=== PATIENT | male | born 1965 | race Caucasian/White ===

== ENCOUNTER 2017-01-08 00:09 | Inpatient (IN) | payer OTHER ==
[~2017-01-08] VITALS: Ht 180.3 cm; Wt 152.5 kg
[~2017-01-08 00:09] MED LIST: AMBIEN10 MG PO; AMITRIPTYLINE H50 MG PO; BUMETANIDE2 MG PO; BUSPAR15 MG PO; BUSPAR30 MG PO; BUSPAR7.5 MG PO; BUTRANS1 EAC2 TD; CALCIUM-MAG-ZI1 EACH PO; CALCIUM-MAGNES1 EAC8 PO; CARISOPRODOL350 MG PO; COMBIVENT RESPIM4 GM IH; DESYREL 150 MG150 MG PO; DIAZEPAM10 MG PO; ELAVIL50 MG PO; FEOSOL BIFERA 228 MG PO; FERROUS SULFAT325 MG PO; GABAPENTIN300 MG PO; HEPARIN LOCK 1005 ML IV; INDOCIN SR75 MG PO; IRON325 M1 PO; K-DUR20 MEQ PO; LASIX40 MG PO; LEVOFLOXACIN500 MG PO; LYRICA150 MG PO; MORPHINE SULFAT30 M2 PO; MULTIPLE VITAM1 EACH PO; PERCOCET 10/1 TABLET PO; SERTRALINE HCL100 MG PO; SYMBICORT60 INHALAT IH; TRAZODONE HCL150 MG PO; ULTRAM50 MG PO; VALIUM10 MG PO; VENLAFAXINE HC150 M1 PO; ZOLPIDEM TARTRA10 MG PO
[2017-01-08 01:14] LABS: VENOUS PCO2 65 mm Hg (41-51)
[2017-01-08 01:15] LABS: CARBON DIOXIDE (BICARBONATE) > 40.0 MEQ/L (20-31)
[2017-01-08 01:16] LABS: HEMATOCRIT 38.4 % (38.0-50.0); MCH 29.1 PG (29.0-34.0); MEAN PLAT.VOLUME 9.8 uM^3 (9.0-12.4); RBC DIS.WIDTH-CV 13.9 % (11.8-14.6); RBC DIS.WIDTH-SD 46.8 % (39-53); RED BLOOD COUNT 4.22 M/uL (4.00-5.50); WHITE BLOOD COUNT 8.1 K/uL (4.1-10.2)
[2017-01-08 01:26] LABS: CHLORIDE 95 mEq/L (99-109); POTASSIUM 3.4 mEq/L (3.7-5.4); SODIUM 138 mEq/L (136-147)
[2017-01-08 01:27] LABS: GLUCOSE 113 mg/dL (70-99)
[2017-01-08 01:29] LABS: ANION GAP 12 MEQ/L (2-14)
[2017-01-08 01:30] LABS: PLATELET COUNT 327 K/uL (156-360)
[2017-01-08 01:31] LABS: GFR ESTIMATE (CALCULATED) > 59 mL/min/; SERUM ETHYL ALCOHOL < 10 mg/dL
[2017-01-08 01:33] LABS: UREA NITROGEN (BUN) 16 mg/dL (9-23)
[2017-01-08 01:34] LABS: SALICYLATE < 5.0 MG/DL (15-30)
[2017-01-08 01:48] LABS: ADD MIUA? NO; BILIRUBIN NEGATIVE; BLOOD NEGATIVE; COLOR YELLOW ((YELLOW)); GLUCOSE (STRIP) NEGATIVE; KETONES NEGATIVE; LEUKOCYTES NEGATIVE; NITRITE NEGATIVE; PROTEIN (STRIP) NEGATIVE; SPECIFIC GRAVITY 1.011 (1.000-1.030); UCUL ADDED? NO; UROBILINOGEN 0.2 MG/DL (0.2-1.0)
[2017-01-08 01:57] LABS: ADD MEDTOX COMMENT Y; AMPHETAMINE NEGATIVE (500 ng/mL); BARBITURATES NEGATIVE (200 ng/mL); BENZODIAZEPINES PRESUMPTIVE POSITIVE (150 ng/mL); COCAINE NEGATIVE (150 ng/mL); INTERNAL CONTROLS VALID? YES; METHADONE NEGATIVE (200 ng/mL); METHAMPHETAMINE NEGATIVE (500 ng/mL); OPIATES (MORPHINE) PRESUMPTIVE POSITIVE (100 ng/mL); OXYCODONE PRESUMPTIVE POSITIVE (100 ng/mL); PHENCYCLIDINE NEGATIVE (25 ng/mL); PROPOXYPHENE NEGATIVE (300 ng/mL); THC CANNABINOIDS NEGATIVE (50 ng/mL); TRICYCLIC ANTIDEPRESSANTS PRESUMPTIVE POSITIVE (300 ng/mL)
[2017-01-08 03:08] LABS: BENZODIAZEPINES, URINE SCREEN POSITIVE (200 ng/mL)
[2017-01-08 03:17] LABS: BASE EXCESS 8.5 mEq/L (-3 to +3); BICARBONATE 35.8 mEq/L (22-26); CARBOXY HGB 3.9 % (0-5); METHEMOGLOBIN 0.9 % (0-1.5); PO2 62 mm Hg (80-100); pH 7.37 (7.35-7.45)
[2017-01-08 03:18] LABS: DEVICE NC; O2 FLOW 3 L/MIN; PCO2 62 mm Hg (35-45); SITE LR
[2017-01-08 05:12] LABS: TOTAL BILIRUBIN 0.2 mg/dL (0.0-1.0)
[2017-01-08 05:13] LABS: ALKALINE PHOSPHATASE 125 IU/L (3-129)
[2017-01-08 05:15] LABS: DIRECT BILIRUBIN 0.1 mg/dL (0.0-0.3)
[2017-01-08 05:16] LABS: TROP-I INTERPRETATION NEGATIVE; TROPONIN-I < 0.01 ng/mL (0.0-0.30)
[2017-01-08 05:46] VITALS: BP 98/53
[2017-01-08 06:05] LABS: POINT-OF-CARE METER ID UU14174216
[2017-01-08 08:16] VITALS: BP 117/56
[2017-01-08 11:03] VITALS: BP 131/63
[2017-01-08] MEDS ORDERED: QUETIAPINE FUMA50 MG PO (15:41)
[2017-01-08] MEDS ORDERED: QUETIAPINE FUM300 MG PO (15:42)
[2017-01-08] MEDS ORDERED: TIZANIDINE HCL4 MG PO (15:42)
[2017-01-08] MEDS ORDERED: BUSPAR15 MG PO (15:43)
[2017-01-08 15:48] VITALS: BP 118/54
== END 2017-01-08 19:38 | disposition home or self-care (01) | DRG 917 ==
LOC: EME → EDBD 00:09 → EME 00:09 → EDOF 04:02 → ENRESERV 04:03 → CANRESERV 04:03 → ENRESERV 04:11 → 4EAST 05:34
PROVIDERS: Emergency Medicine; Hospitalist
DX: T40.2X1A Poisoning by other opioids, accidental (unintentional), initial encounter (principal); T42.4X1A Poisoning by benzodiazepines, accidental (unintentional), initial encounter; F17.210 Nicotine dependence, cigarettes, uncomplicated; E66.01 Morbid (severe) obesity due to excess calories; R09.02 Hypoxemia; G89.29 Other chronic pain; J18.9 Pneumonia, unspecified organism; M54.9 Dorsalgia, unspecified; J44.0 Chronic obstructive pulmonary disease with (acute) lower respiratory infection; I42.9 Cardiomyopathy, unspecified; G62.9 Polyneuropathy, unspecified; G93.41 Metabolic encephalopathy; I50.9 Heart failure, unspecified; Z82.49 Family history of ischemic heart disease and other diseases of the circulatory system; Z88.0 Allergy status to penicillin; I25.2 Old myocardial infarction; Y92.9 Unspecified place or not applicable
CPT/HCPCS: 36600; 70450; 71010; 80048; 80076; 81003; 82140; 82803; 82948; 83605; 84484; 84999; 85027; 87040; 93005; 93970; 94799; 99281; 99285; G0480; J0456; J0696; J1650; J2310; J3480; J7040; J7050

== ENCOUNTER 2017-06-17 02:01 | Inpatient (IN) | payer OTHER ==
[~2017-06-17] VITALS: Ht 180.3 cm; Wt 160.0 kg
[~2017-06-17 02:01] MED LIST changes: +QUETIAPINE FUM300 MG PO; +QUETIAPINE FUMA50 MG PO; +TIZANIDINE HCL4 MG PO
[2017-06-17 03:22] LABS: HEMATOCRIT 37.2 % (38.0-50.0); HEMOGLOBIN 12.2 G/DL (12.5-16.6); MCH 29.5 PG (29.0-34.0); MCHC 32.8 G/DL (30.0-36.0); MCV 89.9 FL (86-99); PLATELET COUNT 139 K/uL (156-360); RBC DIS.WIDTH-CV 15.2 % (11.8-14.6); RBC DIS.WIDTH-SD 49.9 % (39-53); RED BLOOD COUNT 4.14 M/uL (4.00-5.50); WHITE BLOOD COUNT 11.6 K/uL (4.1-10.2)
[2017-06-17 03:37] LABS: ALBUMIN 3.7 g/dL (3.2-4.8); CHLORIDE 98 mEq/L (99-109); SODIUM 134 mEq/L (136-147)
[2017-06-17 03:39] LABS: GLUCOSE 110 mg/dL (70-99); TOTAL PROTEIN 6.7 g/dL (6.4-8.3)
[2017-06-17 03:41] LABS: TOTAL BILIRUBIN 0.3 mg/dL (0.0-1.0)
[2017-06-17 03:42] LABS: SERUM ETHYL ALCOHOL < 10 mg/dL
[2017-06-17 03:43] LABS: CREATININE 1.1 mg/dL (0.6-1.3); GFR ESTIMATE (CALCULATED) > 59 mL/min/ (58.99-99999)
[2017-06-17 03:44] LABS: ALKALINE PHOSPHATASE 100 IU/L (3-129); AST (GOT) 33 IU/L (2-34)
[2017-06-17 03:45] LABS: UREA NITROGEN (BUN) 23 mg/dL (9-23)
[2017-06-17 03:46] LABS: SALICYLATE < 5.0 MG/DL (15-30)
[2017-06-17 03:47] LABS: ACETAMINOPHEN (TYLENOL) < 10 mcg/mL (10-30); ALT (GPT) 37 IU/L (3-49)
[2017-06-17 08:41] LABS: BASOPHIL (%) 0.4 % (0-1); EOSINOPHIL (%) 0.5 % (0-5); EOSINOPHIL COUNT 0.1 K/uL (0-0.3); HEMATOCRIT 39.3 % (38.0-50.0); HEMOGLOBIN 12.8 G/DL (12.5-16.6); IMMATURE GRANULOCYTE (%) 0.7 % (0.0-0.7); LYMPHOCYTE (%) 12.5 % (15-42); LYMPHOCYTE COUNT 1.4 K/uL (1.0-2.8); MCH 29.3 PG (29.0-34.0); MCHC 32.6 G/DL (30.0-36.0); MCV 89.9 FL (86-99); MONOCYTE (%) 5.2 % (3-12); MONOCYTE COUNT 0.6 K/uL (0-0.8); NEUTROPHIL (%) 80.7 % (45-76); NEUTROPHIL COUNT 9.1 K/uL (1.8-6.4); PLATELET COUNT 169 K/uL (156-360); RBC DIS.WIDTH-CV 15.2 % (11.8-14.6); RBC DIS.WIDTH-SD 49.7 % (39-53); RED BLOOD COUNT 4.37 M/uL (4.00-5.50); WHITE BLOOD COUNT 11.3 K/uL (4.1-10.2)
[2017-06-17 09:12] LABS: CHLORIDE 100 MEQ/L (99-109); CREATININE 0.8 MG/DL (0.6-1.3); GFR ESTIMATE (CALCULATED) > 59 mL/min/ (58.99-99999); GLUCOSE 134 mg/dL (70-99); POTASSIUM 3.4 MEQ/L (3.7-5.4); SODIUM 135 MEQ/L (136-147); UREA NITROGEN (BUN) 20 mg/dL (9-23)
[2017-06-17 10:03] VITALS: BP 136/60
[2017-06-17] MEDS ORDERED: IBUPROFEN800 MG PO (10:39)
[2017-06-17 16:23] VITALS: BP 119/58
[2017-06-17 19:30] VITALS: BP 115/56
[2017-06-17 23:46] VITALS: BP 129/71
[2017-06-18 04:01] VITALS: BP 123/60
[2017-06-18 08:37] VITALS: BP 147/58
[2017-06-18 12:17] VITALS: BP 139/81
[2017-06-18 16:23] VITALS: BP 151/71
[2017-06-18 19:56] VITALS: BP 123/60
[2017-06-19 01:04] VITALS: BP 123/57
[2017-06-19 04:30] VITALS: BP 132/61
[2017-06-19 05:53] LABS: CHLORIDE 101 MEQ/L (99-109); CREATININE 0.8 MG/DL (0.6-1.3); GFR ESTIMATE (CALCULATED) > 59 mL/min/ (58.99-99999); GLUCOSE 113 mg/dL (70-99); POTASSIUM 3.3 MEQ/L (3.7-5.4); SODIUM 141 MEQ/L (136-147); UREA NITROGEN (BUN) 15 mg/dL (9-23)
[2017-06-19 05:55] LABS: HEMATOCRIT 42.4 % (38.0-50.0); HEMOGLOBIN 13.1 G/DL (12.5-16.6); MCH 28.4 PG (29.0-34.0); MCHC 30.9 G/DL (30.0-36.0); MCV 91.8 FL (86-99); PLATELET COUNT 199 K/uL (156-360); RBC DIS.WIDTH-CV 15.9 % (11.8-14.6); RBC DIS.WIDTH-SD 52.3 % (39-53); RED BLOOD COUNT 4.62 M/uL (4.00-5.50)
[2017-06-19 08:30] VITALS: BP 135/78
[2017-06-19] MEDS ORDERED: LEVOFLOXACIN750 MG PO (09:22)
[2017-06-19] MEDS ORDERED: K-DUR20 MEQ PO (09:22)
== END 2017-06-19 10:29 | disposition home or self-care (01) | DRG 917 ==
LOC: EME → EDBD 02:01 → 4EAST 07:12 → EDOF 07:12 → ENRESERV 07:13 → EDOF 07:18 → ENRESERV 08:41 → 4EAST 09:51 → ENPENDDIS 06-19 → 4EAST 06-19 10:29
PROVIDERS: Emergency Medicine; Hospitalist; Internal Medicine
DX: T40.601A Poisoning by unspecified narcotics, accidental (unintentional), initial encounter (principal); G92 Toxic encephalopathy; J96.01 Acute respiratory failure with hypoxia; I50.23 Acute on chronic systolic (congestive) heart failure; J69.0 Pneumonitis due to inhalation of food and vomit; E87.6 Hypokalemia; J44.9 Chronic obstructive pulmonary disease, unspecified; G47.33 Obstructive sleep apnea (adult) (pediatric); G89.29 Other chronic pain; M54.9 Dorsalgia, unspecified; I42.9 Cardiomyopathy, unspecified; F32.9 Major depressive disorder, single episode, unspecified; F41.9 Anxiety disorder, unspecified; E66.9 Obesity, unspecified; F17.210 Nicotine dependence, cigarettes, uncomplicated; I25.2 Old myocardial infarction; Z79.891 Long term (current) use of opiate analgesic; Z88.0 Allergy status to penicillin; Z68.42 Body mass index [BMI] 45.0-49.9, adult
CPT/HCPCS: 70450; 71046; 80048; 80048 91; 80053; 83880; 84145 90; 85025; 85027; 93005; 93306; 94640; 94640 76; 94760; 94799; 99202; 99281; 99285; G0480; J0696; J1650; J1940; J2310; S0030

== ENCOUNTER 2017-11-06 18:10 | Emergency (ER) | payer OTHER ==
[~2017-11-06] VITALS: Ht 177.8 cm; Wt 155.3 kg
[~2017-11-06 18:10] MED LIST changes: +IBUPROFEN800 MG PO; +LEVOFLOXACIN750 MG PO
[2017-11-06 20:30] VITALS: BP 137/64
== END 2017-11-06 20:30 | disposition home or self-care (01) ==
LOC: EME 18:10
DX: S00.83XA Contusion of other part of head, initial encounter (principal); Y09 Assault by unspecified means; J44.9 Chronic obstructive pulmonary disease, unspecified; I25.2 Old myocardial infarction; Z79.891 Long term (current) use of opiate analgesic; Z88.0 Allergy status to penicillin; F17.200 Nicotine dependence, unspecified, uncomplicated
CPT/HCPCS: 70150; 99281; 99283